=== PATIENT | male | born 1950 | race Hispanic/Latino ===

== ENCOUNTER 2024-09-26 05:55 | Day surgery (SDC) | payer OTHER ==
[2024-09-26] VITALS (12 sets, daily range): BP systolic 110–168; BP diastolic 72–88; PULSE 59–80; RESP 14–18; TEMP 97.2–98.2
[~2024-09-26] VITALS: Ht 172.7 cm; Wt 105.2 kg
[~2024-09-26 05:55] MED LIST: AMLO-257 PO; LOSA50TA64 PO; ROSU10TA72 PO
[2024-09-26] MEDS: 0.9%NACL 1000ML 1,000 ML IV ONE (07:19)
[2024-09-26] MEDS ORDERED: proPOFol 10 MG/ML 20ML VIAL IV ONE ×2 (08:14→08:50)
== END 2024-09-26 10:28 | disposition home or self-care (01) ==
LOC: DAH 05:55 → ENDO 05:55
PROVIDERS: ATTEND Surgery
DX: C18.6 Malignant neoplasm of descending colon (principal); D12.3 Benign neoplasm of transverse colon; K62.1 Rectal polyp; K64.8 Other hemorrhoids; I10 Essential (primary) hypertension; E78.5 Hyperlipidemia, unspecified; Z86.0100 Personal history of colon polyps, unspecified; Z98.0 Intestinal bypass and anastomosis status; Z79.899 Other long term (current) drug therapy
CPT/HCPCS: 45380; J7030 ×2; J2704 ×2; A4620; A4215; A4223; A7002; A4222; A4221; A4663; A4606; J3490